=== PATIENT | female | born 1995 | race Caucasian/White ===

== ENCOUNTER 2020-11-12 11:03 | Emergency (ER) | payer OTHER ==
[~2020-11-12] VITALS: Ht 162.6 cm; Wt 74.4 kg
[2020-11-12 11:06] VITALS: BP 148/84
--- NOTE | 2020-11-12 11:17 | NUR ---
Patient ambulated to bed 02 with steady/even gait.
--- NOTE | 2020-11-12 11:20 | NUR ---
25 y/o F brought in from home with c/c abdominal pain. Patient A&Ox4, ambulatory and states L lower pelvic pain that began 0930 this morning. Patient reports 3/10, stabbing/intermittent, radiating to her right lower pelvic region. Patient also reports back pain since yesterday, and nausea/vomiting x 3 episodes since this morning. Patient denies fever, chills, SOB, chest pain, headache, dizziness, fatigue, cough, cold-like symptoms. Denies any recent Covid vaccinations or medications [employer]. States she was seen at an Urgent Care and was told she was ; unknown how far along she is. Last BM: this AM; normal/semi-formed. LMP 10/16/2020. Pt placed into a gown. VSS; lung sounds CTA. Bed locked in lowest position, side rails x 1. PMH: Anxiety, asthma, gestational HTN Meds: Albuterol NKA Sx: R ankle x 4 years ago
--- NOTE | 2020-11-12 11:25 | NUR ---
Patient states unable to void at this time. Will try in 15 mins.
--- NOTE | 2020-11-12 11:26 | NUR ---
Dr. Mehta is evaluating patient at bedside.
--- NOTE | 2020-11-12 11:33 | NUR ---
Lab at bedside.
--- NOTE | 2020-11-12 11:39 | NUR ---
US tech at bedside.
[2020-11-12 11:43] LABS: BASOPHILS % (AUTO) 0.3 % (0.0-2.0); EOSINOPHILS % (AUTO) 0.1 % (0.0-4.0); HEMATOCRIT 38.7 % (36-48); LYMPHOCYTES % (AUTO) 24.1 % (20.5-51.1); MEAN CORPUSCULAR HEMOGLOBIN 30 pg (27-31); MEAN CORPUSCULAR HGB CONC 34 g/dL (33-37); MONOCYTES # (AUTO) 0.5 K/uL (0.8-1.0); MONOCYTES % (AUTO) 6.4 % (1.7-9.3); NEUTROPHILS # (AUTO) 5.7 K/uL (1.8-7.7); NEUTROPHILS % (AUTO) 69.1 % (42.2-75.2); PLATELET COUNT (AUTO) 237 K/uL (140-450); RED CELL DISTRIBUTION WIDTH 13.4 % (11.6-13.7); WHITE BLOOD COUNT (AUTO) 8.3 K/uL (4.8-10.8)
[2020-11-12 11:56] LABS: ALBUMIN 3.8 g/dL (3.4-5.0); ANION GAP 14.1 (8-16); CARBON DIOXIDE 24.5 mmol/L (21-32); CREATININE 0.7 mg/dL (0.6-1.3); POTASSIUM 3.6 mmol/L (3.5-5.1); TOTAL BILIRUBIN 0.5 mg/dL (0.0-1.0)
[2020-11-12 12:04] LABS: APPEARANCE,URINE CLEAR (CLEAR); BILIRUBIN,URINE NEGATIVE (NEGATIVE); BLOOD, URINE NEGATIVE (NEGATIVE); COLOR,URINE YELLOW (YELLOW); LEUKOCYTE ESTERASE ,URINE NEGATIVE (NEGATIVE); NITRITE, URINE NEGATIVE (NEGATIVE); PH,URINE 6.5 (5.0-9.0); UGLUCOSE NEGATIVE (NEGATIVE)
--- NOTE | 2020-11-12 13:00 | NUR ---
Patient resting in position of comfort in high-fowlers position. [place] provided. bottom steep tender remains in place. Respirations even/unlabored. Bed locked in lowest position, side rails x 1, call light in reach.
[2020-11-12 13:43] VITALS: BP 114/70
--- NOTE | 2020-11-12 13:43 | NUR ---
Patient discharged with v/s stable. Written and verbal after care instructions given and explained. Patient verbalized understanding. Ambulatory with steady gait. All questions addressed prior to discharge. Advised to follow up with PMD.
== END 2020-11-12 13:43 | disposition home or self-care (01) ==
LOC: MED 11:03
DX: O26.891 Other specified pregnancy related conditions, first trimester (principal); R10.32 Left lower quadrant pain; J45.909 Unspecified asthma, uncomplicated; F41.9 Anxiety disorder, unspecified; Z3A.08 8 weeks gestation of pregnancy
CPT/HCPCS: 36415; 76801; 80053; 81003; 81025; 83690; 84702; 85025; 99284

== ENCOUNTER 2024-01-25 09:05 | Emergency (ER) | payer OTHER ==
[~2024-01-25] VITALS: Ht 162.6 cm; Wt 81.2 kg
[2024-01-25 09:24] VITALS: BP 152/80; PULSE 62; RESP 15; TEMP 98.7; O2SAT 100
[2024-01-25 11:14] LABS: BILIRUBIN,URINE NEGATIVE (NEGATIVE); BLOOD, URINE 2+ (NEGATIVE); COLOR,URINE YELLOW (YELLOW); LEUKOCYTE ESTERASE ,URINE 3+ (NEGATIVE); NITRITE, URINE POSITIVE (NEGATIVE); PH,URINE 7.5 (5.0-9.0); PROTEIN,URINE TRACE (NEGATIVE); UGLUCOSE NEGATIVE (NEGATIVE); UROBILINOGEN,URINE 0.2 EU/dL (0.2 - 1)
[2024-01-25 11:16] LABS: APPEARANCE,URINE SLIGHTLY HAZY (CLEAR)
[2024-01-25 11:27] LABS: BASOPHILS % (AUTO) 0.5 % (0.0-2.0); EOSINOPHILS % (AUTO) 0.4 % (0.0-4.0); HEMATOCRIT 38.7 % (36-48); HEMOGLOBIN 12.7 g/dL (12.0-16.0); LYMPHOCYTES # (AUTO) 1.6 K/uL (2.5-16.5); LYMPHOCYTES % (AUTO) 26.9 % (20.5-51.1); MEAN CORPUSCULAR HEMOGLOBIN 29 pg (27-31); MEAN CORPUSCULAR HGB CONC 33 g/dL (33-37); MEAN CORPUSCULAR VOLUME 88.2 fL (80-94); MONOCYTES # (AUTO) 0.3 K/uL (0.8-1.0); MONOCYTES % (AUTO) 5.3 % (1.7-9.3); NEUTROPHILS % (AUTO) 66.9 % (42.2-75.2); PLATELET COUNT (AUTO) 224 K/uL (140-450); RED BLOOD CELL COUNT(AUTO) 4.39 MIL/uL (4.20-5.40); RED CELL DISTRIBUTION WIDTH 13.4 % (11.6-13.7); WHITE BLOOD COUNT (AUTO) 5.9 K/uL (4.8-10.8)
[2024-01-25 11:49] LABS: RBC,URINE 11-20 (MOD) /HPF (0-5)
[2024-01-25 11:50] LABS: BACTERIA,URINE 3+ /HPF (None Seen); MUCUS,URINE 2+ /LPF (None Seen); SQUAMOUS EPITHELIAL CELL,UR 20-50 /LPF (0-3 (FEW))
[2024-01-25] MEDS ORDERED: CEPH-588 PO (12:57)
[2024-01-25 13:37] VITALS: BP 117/78; PULSE 59; RESP 20; TEMP 98.7; O2SAT 98
== END 2024-01-25 13:34 | disposition home or self-care (01) ==
LOC: MED 09:05
DX: O23.41 Unspecified infection of urinary tract in pregnancy, first trimester (principal); N39.0 Urinary tract infection, site not specified; O99.511 Diseases of the respiratory system complicating pregnancy, first trimester; J45.909 Unspecified asthma, uncomplicated; F41.9 Anxiety disorder, unspecified; O99.891 Other specified diseases and conditions complicating pregnancy; Z3A.00 Weeks of gestation of pregnancy not specified
CPT/HCPCS: 36415; 76817; 81001; 81025; 84702; 85025; 86900; 86901; 87086; 87186; 99284; Q0092